=== PATIENT | male | born 1990 | race Caucasian/White ===

== ENCOUNTER → 2017-10-18 | Outpatient (CLI) | payer BC ==
--- NOTE | 2017-10-18 11:01 | RADIOLOGY IMAGING REPORT ---
FACILITY: [facility] PATIENT NAME: Won Alcaraz : 1990 MR: [id number] V: [id number] EXAM DATE: ORDERING PHYSICIAN: GALLO DAVILA TECHNOLOGIST: Location: [facility] Patient: Won Alcaraz : 1990 Visit/Account:[id number] Date of Sevice: 10/18/2017 ABD SINGLE ORGAN/QUAD/FOLLOWUP HISTORY: Palpable lump in right inguinal canal COMPARISON: None. FINDINGS: Multiple sonographic images of the right inguinal canal were submitted both with and without Valsalva maneuver. Upon the Valsalva maneuver of bowel was noted to enter the right inguinal canal consisten t with a right inguinal hernia IMPRESSION: Upon the Valsalva maneuver bowel was noted to enter the right inguinal canal consistent with a right inguinal hernia Report Dictated By: Key Louise MD at 10/18/2017 10:55 AM Report E-Signed By: Key Louise MD at 10/18/2017 10:57 AM WSN:[email or web address]
== END ==
LOC: US 08:48
PROVIDERS: ATTEND Physician Assistant
DX: K40.30 Unilateral inguinal hernia, with obstruction, without gangrene, not specified as recurrent (principal)
CPT/HCPCS: 76705

== ENCOUNTER 2017-10-24 01:23 | Day surgery (SDC) | payer BC ==
--- NOTE | 2017-10-18 16:35 | HISTORY AND PHYSICAL ---
DATE OF ADMISSION: October 24, 2017 CHIEF COMPLAINT Bulge in the right groin. HISTORY OF PRESENT ILLNESS This is a 27-year-old healthy male who was helping his dad move and then he noticed a bulge in his right groin. He denied any previous problems in that area. ALLERGIES No known allergies. MEDICATIONS Currently on no medications. PAST SURGICAL HISTORY Left forearm plates and screws placed in 2001. REVIEW OF SYSTEMS No cardiac, pulmonary, liver or kidney disease, diabetes, hypertension. No history of deep venous thrombosis. PHYSICAL EXAMINATION Examination reveals a visible and reducible large right inguinal hernia. IMPRESSION Right inguinal hernia. PLAN Repair. We will do a laparoscopic approach with robot assist to repair this in a retroperitoneal fashion. He seems to understand and wishes to proceed. TORRIE
[~2017-10-24] VITALS: Ht 170.2 cm; Wt 75.7 kg
[2017-10-24] VITALS (7 sets, daily range): BP systolic 119–135; BP diastolic 81–95
[2017-10-24 06:11] LABS: PLATELET COUNT, AUTOMATED 189 K/uL (150-450)
[2017-10-24] MEDS ORDERED: NORMOSOL R SOLN(*) 1000 ML BAG 1,000 ML IV PRN (06:30)
[2017-10-24] MEDS ORDERED: ceFAZolin(*) 2GM/D5W 50ML 50 ML IVPB ONE (06:30)
[2017-10-24] MEDS ORDERED: ROPIVACAINE 0.2% 20 ML VIAL ONE (06:30)
[2017-10-24] MEDS ORDERED: FAMOTIDINE 20 MG TAB PO ONE (06:30)
[2017-10-24] MEDS ORDERED: MIDAZOLAM 2 MG/2 ML VIAL IVP PRN (06:30)
[2017-10-24] MEDS ORDERED: LIDOCAINE/SOD BICARB 8.4% SYR ID ONE (06:30)
[2017-10-24] MEDS ORDERED: ROCURONIUM BROM 10 MG/ML 10 ML ONE (07:01)
[2017-10-24] MEDS ORDERED: SUGAMMADEX SOD 200 MG/2 ML SDV ONE ×2 (07:01→09:06)
[2017-10-24] MEDS ORDERED: PROPOFOL EMUL(*) 10MG/ML 20 ML 20 ML ONE (07:01)
[2017-10-24] MEDS ORDERED: LIDOCAINE MPF 1% 5 ML VIAL ONE (07:01)
[2017-10-24] MEDS ORDERED: DEXAMETHASONE SOD 4 MG/ML VIAL ONE (07:01)
[2017-10-24] MEDS ORDERED: fentaNYL CITR 250 MCG/5 ML AMP ONE (07:01)
[2017-10-24] MEDS ORDERED: ONDANSETRON 4 MG/2 ML VIAL ONE (07:01)
[2017-10-24] MEDS ORDERED: KETAMINE HCL 200 MG/20 ML MDV ONE (07:05)
--- NOTE | 2017-10-24 07:13 | Post Operative Progress Note ---
Post Operative Progress Note Date: Oct 24, 2017 Time: 09:31 Surgeon: america Anesthesia: dr louis Pre-Op Diagnosis: right inguinal hernia Post-Op Diagnosis: same, indirect Procedure(s): laparoscopic right inguinal hernia, robot assist MARY KESSLER MD Oct 24, 2017 07:13
[2017-10-24] MEDS ORDERED: KET10 PO (07:14)
[2017-10-24] MEDS ORDERED: HYDR-4309 PO (07:14)
--- NOTE | 2017-10-24 07:17 | Short(Outpt) Discharge Summary ---
Discharge Summary Reason for Hosp/Final Diag: (1) Right inguinal hernia Hospital Course & Plan: laparoscopic right inguinal hernia robot assist, indirect Departure Discharge to: Home Discharge Instructions Home Meds Active Scripts Hydrocodone Bit/Acetaminophen (NORCO 5-325 TABLET) 1 Each Tablet, 1 EACH PO Q4H Y for PAIN, #30 TAB Prov:MARY KESSLER MD 10/24/17 Ketorolac Tromethamine (KETOROLAC TROMETHAMINE) 10 Mg Tab, 10 MG PO Q6H, #20 TAB Prov:MARY KESSLER MD 10/24/17 Diet: Regular Activity: No Heavy Lifting Special Instructions: ice to incisions for 48 hours remove bandages and shower to see me in one week, call [phone] for apt MARY KESSLER MD Oct 24, 2017 07:17
[2017-10-24] MEDS ORDERED: NS 0.9% IRRIGATION 1000ML PLCT IR ONE (07:49)
[2017-10-24] MEDS ORDERED: KETOROLAC 30 MG/ML VIAL ONE (09:15)
[2017-10-24] MEDS ORDERED: APAP/HYDROCODONE 325/5 TAB PO PRN (10:55)
--- NOTE | 2017-10-24 18:51 | OPERATIVE REPORT 1 ---
EVENT DATE: October 24, 2017 SURGEON: Ruel Kennedy MD ANESTHESIOLOGIST: Kirby Dale MD ANESTHESIA: General. PREOPERATIVE DIAGNOSIS Right inguinal hernia. POSTOPERATIVE DIAGNOSIS Right indirect inguinal hernia. PROCEDURE PERFORMED Right inguinal hernia repair laparoscopically with robot assist. DESCRIPTION OF PROCEDURE The patient was placed in the supine position and given general anesthetic. His abdomen was prepped and draped in a sterile fashion. We made a midline incision 20 cm above the pubic bone, anesthetized the skin with 0.2% ropivacaine , inserted a Veress needle, insufflated the abdomen with CO2, placed an 8 mm port under direct vision. We then placed two more 8 mm ports laterally across the abdomen 8 cm from the midline port site. These were placed under direct vision. At this point, we placed the patient in slight Trendelenburg. We docked the robot, targeted the laser. We then advanced the instruments under direct vision, a ProGrasp in the left hand and a monopolar scissors in the right. Also, prior to docking the robot, we had placed the mesh and the V-Loc suture in the abdomen. At this point, we created our flap. We went 5 cm above the hernia defect and made an incision across the upper peritoneum using the scissors and the cautery. We went lateral to medial to the median ligament. We then proceeded to dissect in this plane for quite some time. We dissected out the pubic tubercle and Abe ligament. We dissected laterally, and then we focused our attention on the hernia sac. The patient had a large hernia sac which was indirect, and we took quite a long time dissecting this hernia sac free. We just continued with gentle traction and dissection with the scissors and cautery. We also switched over to another grasper to continue to tease this out. We were eventually able to get the hernia reduced and then continued to dissect the vas deferens and the cord structures off the peritoneum and got 3 cm below the lower edge of the hernia defect. At this point, we had excellent hemostasis and good visualization. We then placed our ProGrip mesh medially to the pubic tubercle and spread laterally. We then opened it up. It covered the Abe ligament and pubic tubercle. It laid nice and flat across the abdomen. We then pressed it into position with the grasper. At this point , we closed the peritoneum with a running V-Loc suture. We incorporated the hernia sac in one of our stitches to prevent it from sliding underneath the mesh. At this point, the needle was removed. We then undocked the robot. Ports were removed under direct vision. No bleeding was noted. Skin was closed with interrupted 4-0 Maxon. Steri-Strips and an Airstrip was placed. The patient tolerated the procedure well. No apparent complication. TORRIE
== END 2017-10-24 10:35 | disposition home or self-care (01) ==
LOC: OR 01:23
PROVIDERS: ATTEND Surgery
DX: K40.90 Unilateral inguinal hernia, without obstruction or gangrene, not specified as recurrent (principal)
CPT/HCPCS: 36415; 49650; 85025; J1100; J1885; J2001; J2250; J2405; J2704; J2795; J3010; J3490; S2900; J0690